=== PATIENT | male | born 1975 ===

== ENCOUNTER 2019-04-20 19:57 | Emergency (ER) | payer OTHER, SELFPAY ==
[2019-04-20 20:13] VITALS: BP 120/69; PULSE 68; RESP 18; TEMP 36.3; O2SAT 98
[2019-04-20 21:27] VITALS: BP 121/65; PULSE 64; RESP 18; O2SAT 99
--- NOTE | 2019-04-20 21:52 | DI.RAD.S_ITS ---
PROCEDURE: XR FINGER LT MIN 2V INDICATIONS: possible fish bone 5th digit TECHNIQUE: AP hand, 2 views of the left fifth finger(s) acquired. COMPARISON: None. FINDINGS: Bones: No fractures or dislocations. No suspicious bony lesions. Soft tissues: No suspicious soft tissue calcifications. No radiodense foreign body. IMPRESSION: No radiodense foreign body. Dictated by: Cristina Best MD, PhD on 04/21/2019 at 8:25 Approved by: Cristina Best MD, PhD on 04/21/2019 at 8:29
--- NOTE | 2019-04-20 22:32 | ED.UPPEXIN ---
HPI - Extremity Injury (Upper) General Chief Complaint: Extremity Injury, Upper Stated Complaint: FISH SPINE IN LT 5TH FINGER Time Seen by Provider: 04/20/19 22:31 Source: patient Mode of arrival: Ambulatory Limitations: no limitations History of Present Illness HPI narrative: Patient is a 43-year-old male who presents with left pinky injury. He is a commercial drone pilot 2 weeks ago he had a is fish, he feels like a piece of the fish possibly a bone or something is stuck in his finger. He has no redness or pus it is slightly swollen. He has been digging at it with a razor blade he feels like something is in there not sure what it is. Currently sleeping initially difficult to arouse but he does wake up MD complaint: injury to: left and finger (Little) Onset (ago): week(s) (2) Related Data Allergies Allergy/AdvReac Type Severity Reaction Status Date / Time No Known Drug Allergies Allergy Verified 04/20/19 20:15 Review of Systems Review of Systems Narrative: GENERAL: Denies chills,fever HEENT: Denies throat pain RESPIRATORY: Denies dyspnea, cough, wheezing CARDIOVASCULAR: Denies chest pain, palpitations GASTROINTESTINAL: Denies nausea, vomiting MUSCULOSKELETAL: See HPI SKIN: No rash, no laceration, no pruritus NEUROLOGIC: Denies weakness, dizziness, headache, numbness 8 point review of systems is negative except for those stated above and HPI Patient History Social History Smoking Status: Current every day smoker tobacco type: cigarettes alcohol intake frequency: a few times a month Substance Use Type: does not use Exam Initial Vital Signs Initial Vital Signs: Vital Signs Temperature 97.4 F L 04/20/19 20:13 Pulse Rate 68 04/20/19 20:13 Respiratory Rate 18 04/20/19 20:13 Blood Pressure 120/69 04/20/19 20:13 Pulse Oximetry 98 04/20/19 20:13 GENERAL: Well-appearing, well-nourished and in no acute distress. CARDIOVASCULAR: peripheral pulses in tact, cap refill <2 sec RESPIRATORY: No respiratory distress, speaks in full sentences without difficulty EXTREMITIES: Normal range of motion, no clubbing or edema. Neurovascularly intact NEUROLOGICAL: Cranial nerves II through XII grossly intact. Normal gait and speech. SKIN: Left pinky finger is swollen no significant erythema no drainage from wound noted to have sort of wound at the PIP joint on the palmar side. With there is no drainage no gross foreign bodies. Course Orders Ordered: ED Orders 04/20/19 21:52 XR finger LT min 2V Stat Vital Signs Vital signs: Vital Signs - 8 hr 04/20/19 20:13 04/20/19 21:27 04/20/19 22:58 Temperature 97.4 F L Pulse Rate 68 64 72 Respiratory Rate 18 18 16 Blood Pressure 120/69 Blood Pressure [Left Arm] 121/65 124/93 H Pulse Oximetry 98 99 98 MDM - Extremity Injury (Upper) Imaging Data Left hand: Attestation: I personally reviewed and interpreted this imaging study as follows: My impression: No foreign body no broken bones MDM Narrative Medical decision making narrative: Patient has no obvious foreign body on x-ray I do not visualize any foreign body. It actually is not erythematous or having gross drainage. Patient is wanting me to find what is in his finger. I have explained to him that I not be taking in his finger without obviously visualizing the foreign body. His finger is swollen I do suspect possible some foreign body. I recommended warm compresses and soaks. At this time no indication for antibiotics no sign of infection. He is a able to move it he has of full range of motion. Patient was sleeping for most of his emergency department visit. He was offered Tylenol or ibuprofen if needed for pain. Discharge Plan Departure Patient Disposition: Home Clinical Impression: Finger pain, left Discharge Date/Time: 04/20/19 22:50 Instructions: DI for Removal of Foreign Body From Skin Activity Restrictions/Additional Instructions: *You have been diagnosed with possible foreign body in finger *What to do: At this time x-ray does not show foreign body. However high suspicion. I recommend soaking in warm soapy water 2 to 3 times a day. This will help bring the foreign body to the surface at which point it can be removed. At this time likely his finger does not appear infected and you do not need antibiotics. DO NOT TAKING HER FINGER WITH A RAZOR BLADE *Continue to take medications as directed *Follow up with your primary care provider in 2-3 days *Return to ER if you should have redness, pus, swelling, inability to bend finger or any new, worsening or concerning symptoms Referrals: Located Within [facility] Resources [Outside]
[2019-04-20 22:58] VITALS: BP 124/93; PULSE 72; RESP 16; O2SAT 98
== END 2019-04-20 22:50 | disposition home or self-care (01) ==
PROVIDERS: Emergency Provider Emergency Medicine
DX: M79.645 Pain in left finger(s) (principal); Y99.0 Civilian activity done for income or pay
CPT/HCPCS: 73140; 99282; 99283